=== PATIENT | male | born 1965 | race Caucasian/White ===

== ENCOUNTER 2025-07-29 16:17 | Emergency (ER) | payer OTHER, SELFPAY ==
--- NOTE | ~2025-07-29 | CT_ITS ---
CLINICAL HISTORY: epigastric llq pain CT abdomen and pelvis with contrast Comparison: None provided Findings: No acute findings within visualized lung bases. Liver, spleen, adrenal glands, pancreas, gallbladder, and kidneys are unremarkable. Calcified but nonaneurysmal abdominal aorta. Unremarkable urinary bladder. Mildly enlarged prostate gland. Moderate circumferential gastric wall thickening. Normal caliber small bowel. No obstruction. Few scattered colonic diverticuli without CT evidence of acute diverticulitis. Mildly increased colonic stool burden. Normal appendix. No free fluid or free air. No acute osseous abnormality. Bilateral L5 spondylolysis with trace grade 1 L5 on S1 anterolisthesis. No pathologically enlarged lymph nodes. Impression: 1. No acute findings identified in the abdomen or pelvis. 2. Mild circumferential gastric wall thickening, could be secondary to incomplete distention or possibly a gastritis. If clinically indicated, consider correlation with endoscopy. 3. Mildly enlarged prostate gland. Consider correlation with PSA. 4. Mild constipation. 5. Additional findings as above. This document has been electronically signed by: Jerel Montero MD on 07/29/2025 19:32:41
[2025-07-29 16:39] VITALS: BP 153/80; PULSE 60; RESP 16; TEMP 36.9; O2SAT 98; BMI 27.7
--- NOTE | 2025-07-29 16:43 | ECG_ITS ---
Test Reason : EPIGASTRIC PAIN Blood Pressure : */* mmHG Vent. Rate : 55 BPM Atrial Rate : 55 BPM P-R Int : 134 ms QRS Dur : 96 ms QT Int : 414 ms P-R-T Axes : 40 1 10 degrees QTcB Int : 396 ms Sinus bradycardia Otherwise normal ECG No previous ECGs available Referred By: Sushil Gusman Electronically Signed By: JANNY MARIE MD
--- NOTE | 2025-07-29 16:45 | ED_ITS ---
HPI - General Adult General Chief complaint: Abdominal Pain Stated complaint: abd pain Time Seen by Provider: 07/29/25 17:49 Related Data Allergies Allergy/AdvReac Type Severity Reaction Status Date / Time No Known Allergies Allergy Verified 07/29/25 16:40 [facility] Social History Social History Alcohol intake: current Alcohol intake frequency: 0-2 drinks per day Alcohol type: beer Physical Exam ED Vital Signs: Vital Signs - 24 hr 07/29/25 16:39 07/29/25 17:58 07/29/25 18:13 Temperature 98.4 F 98.3 F 98.8 F Pulse Rate 60 61 65 Respiratory Rate 16 18 18 Blood Pressure 153/80 H 140/78 H 152/78 H Pulse Oximetry 98 94 94 Oxygen Delivery Method Room Air Room Air Room Air 07/29/25 21:00 Temperature 98.8 F Pulse Rate 65 Respiratory Rate 18 Blood Pressure 152/78 H Pulse Oximetry 94 Oxygen Delivery Method Room Air BMI result Body Mass Index 27.7 Course Course Course Narrative: RME: 60-year-old male presents to ED for epigastric abdominal pain with low- grade fever and diarrhea. Patient states gas and low appetite. Patient denies any fever chills or urinary symptoms. Labs ordered Medications Administered Discontinued Medications Generic Name Dose Route Start Last Admin Trade Name Freq PRN Reason Stop Dose Admin Sodium Chloride 1,000 mls @ 999 mls/hr 07/29/25 18:00 07/29/25 21:00 Ns IV 07/29/25 19:00 Infused .Q1H1M JIMMY Infusion Medical Decision Making Lab Data 07/29/25 17:37 07/29/25 17:37 Labs: Lab Results 07/29/25 07/29/25 Range/Units 17:37 18:30 WBC 8.4 (4.8-10.8) X10*3/uL RBC 4.46 L (4.60-5.80) X10*6/uL Hgb 13.2 L (14.0-18.0) g/dl Hct 39.0 L (42.0-52.0) % MCV 87.4 (80.0-98.0) fL MCH 29.6 (27.0-33.0) pg MCHC 33.8 (31.0-36.0) g/dl RDW 13.1 (11.0-16.0) % Plt Count 240 (160-400) X10*3/uL MPV 9.9 (9.4-12.4) fL Immature Gran % (Auto) 2.3 H (0.0-0.4) % Neut % (Auto) 55.5 (45-73) % Lymph % (Auto) 29.0 (20-40) % [place] % (Auto) 11.2 H (2-11) % Eos % (Auto) 1.3 (0-4) % Baso % (Auto) 0.7 (0-2) % Lymph # (Auto) 2.4 (1.2-4.9) X10*3/uL [place] # (Auto) 0.9 (0.1-1.2) X10*3/uL Eos # (Auto) 0.1 (0.0-0.4) X10*3/uL Baso # (Auto) 0.1 (0.0-0.2) X10*3/uL Abs Immat Gran (auto) 0.19 H (0.00-0.03) X10*3/uL Absolute Neuts (auto) 4.7 (2.0-8.3) x10*3/uL Absolute Nucleated RBC 0.000 (0.0-0.012) X10*3/uL Nucleated RBC % (auto) 0.0 (0.0-0.2) /100WBC PT 10.9 (10.9-12.4) SEC INR 1.0 (0.9-1.1) APTT 26.6 L (26.7-34.1) SEC Sodium 143 (135-145) mmol/L Potassium 4.0 (3.3-5.1) mmol/L Chloride 105 (96-108) mmol/L Carbon Dioxide 28 (22-29) mmol/L Anion Gap 14 (12-20) BUN 17 H (9-16) mg/dL Creatinine 0.91 (0.5-1.4) mg/dL Estim Creat Clear Calc 82.6 Estimated GFR > 60 Random Glucose 81 (60-115) mg/dL Calcium 9.3 (8.4-10.2) mg/dL Total Bilirubin 0.5 (0.0-1.0) mg/dL AST 24 (5-37) U/L ALT 20 (0-40) U/L Alkaline Phosphatase 75 (39-117) U/L Troponin I High Sens < 2.7 (<3.5-35.0) ng/L Total Protein 7.0 (6.5-8.0) g/dL Albumin 4.2 (3.5-5.0) g/dL Lipase 27 (8-78) U/L COVID-19 (NOEMI) Negative (Negative) COVID-19 Clin Com See Note Discharge Plan Discharge Clinical Impression: Abdominal pain, Gastritis Patient Disposition: Home, Self-Care Instructions: Gastritis (ED) Referrals: Micah Smith MD [Primary Care Provider, Internal Medicine] - 08/01/25 Interventions: ED Discharge Assessment Last Done: 07/29/25 21:00 Discharge Date/Time: 07/29/25 21:00 Print Language: Hungarian
[2025-07-29 17:41] LABS: MANUAL DIFF FLAG NO
--- OUTSIDE RECORDS SUMMARY | 2025-07-29 17:44 | XMS_ITS | Clinical Summary ---
Author Organization [facility] Address [address] [facility] [address] [place] [address] Phone Care Team Providers Care Automotive General Sales Manager Name Role Phone Micah Smith MD Primary Care Provider [phone] Micah Smith MD Unavailable [phone] Lewis Marquez MD Unavailable [phone] Allergies Active Allergy Reactions Criticality Noted Date Comments Amoxicillin-Pot Clavulanate Diarrhea Low 01/15/20 20 Medications metoprolol tartrate (LOPRESSOR) 25 MG tablet Take 1 tablet by mouth 2 (two) times a day. 06/15/2024 Active aspirin 81 mg chewable tablet Take 81 mg by mouth daily. Active omeprazole (PRILOSEC) 20 MG tablet Take 20 mg by mouth daily. Active tadalafiL (CIALIS) 5 MG tablet Take 5 mg by mouth daily as needed for erectile dysfunction. Active omega-3 acid ethyl esters (LOVAZA) 1 gram capsule Take 2 g by mouth 2 (two) times a day. Active Active Problems Problem Noted Date Diagnosed Date Gastroesophageal reflux disease 02/06/2025 Erectile disorder 02/06/2025 History of allograft aortic valve replacement Calculus of lower urinary tract 06/21/2019 Other hyperlipidemia 09/26/2018 Obstructive sleep apnea syndrome 09/26/2018 Resolved Problems Problem Noted Date Diagnosed Date Resolved Date Aortic stenosis, moderate 01/20/2022 Pain of left shoulder with external rotation 01/28/2022 Trigger finger of left thumb 09/26/2018 11/11/2022 Trigger middle finger of left hand 09/26/2018 11/11/2022 Immunizations Immunization Administration Dates Next Due INFLUENZA, SPLIT VIRUS, TRIVALENT PF 09/03/2017 Influenza Quadrivalent Preservative Free IM 11/0 07/2020 Influenza Recombinant Joey valent Preservative Free IM 09/27/2019,09/26/2018 Td (adult),2 Lf Tetanus Toxoid, PF, Adsorbed Td, unspecified formulation 04/11/2008 Tdap 06/13/2012 Family History Medical History Relation Comments Bladder Cancer Father CV disease Father hx of angioplast y Diabetes mellitus Father Heart disease Sister stent Relation Status Comments Father ureter tumor Mother Alive Sister Alive Social History Tobacco Use Types Packs/Day Years Used Date Smoking Tobacco: Never Smokeless Tobacco: Never Tobacco Cessation:Counseling Given: Not Answered Alcohol Use Standard Drinks/Week Comments Not Currently 0 (1 standard drink = 0.6 oz pur e alcohol) 2 beers a night Child or Family Care Answer Date Record ed Do you have problems with on e of the following making it difficult for you to work, study, or receive health care? No 11/27/2023 Education Answer Date Recorded Are you interested in help w ith more adult education (for example, completing high school, GED, job training, learning the Tongan language, technical skills, or developing parenting skills)? No 11/27/2023 Are you concerned about learning? Not on file 11/27/2023 No 11/27/2023 Yes 11/27/2023 Food Answer Date Recorded Within the past 6 months we worried whether our food would run out before we got money to buy more. Never True 11/27/2023 Within the past 6 months the food we bought just didn't last and we didn't have enough money to get more. Never True Residential Stability Answer Date Recor ded What is your housing situation today? I have nellie sing 11/27/2023 How many times have you move d in the past 12 months? Zero (I did not move) 11/27/2023 Paying for Meds Answer Date Recorded Do you have trouble paying for medicines? No 11/27/2023 Paying Utility Bills Answer Date Record ed Do you have trouble paying your heating or elect ricity bill? No 11/27/2023 Transportation Answer Date Recorded Has the lack of transportati on kept you from medical appointments or from getting medications? No 11/27/2023 Unemployment Answer Date Recorded Are you currently unemployed or working on a part-time or temporary basis, and looking for work? No 11/10/2022 Digital Access Answer Date Recorded No 11/27/2023 Yes 11/27/2023 Do you have reliable internet access at home? Ye s 11/27/2023 Do you have a device (e.g., phone, tablet, computer) with a working camera? Yes 11/27/2023 Intimate Partner Violence Answer Date R ecorded Are you denied basic needs s uch as food, clothing, or medical care? No 04/11/2024 In the past 12 months have y ou been in a relationship with a person who hurts, threatens, or tries to control you? No 04/11/2024 Are you denied basic needs s uch as food, clothing, or medical care? No 04/11/2024 In the past 12 months have y ou been in a relationship with a person who hurts, threatens, or tries to control you? No 04/11/2024 Sex and Gender Information Value Date Recorded Sex Assigned at Male 10/04/2021 5:42 AM EST Legal Sex Male 6:37 PM EST Gender Identity Not on file Sexual Orientation Straight 12/21/2021 7: 42 AM EST Last Filed Vital Signs Vital Sign Reading Time Taken Comments Blood Pressure 108/60 02/06/2025 1:38 PM EDT Pulse 70 02/06/2025 1:38 PM EDT Temperature 36.2 C (97.1 F) 02/06/2025 1:38 PM EDT Respiratory Rate 18 06/15/2019 6:26 PM EDT Oxygen Saturation 96% 02/06/2025 1:38 PM EDT Inhaled Oxygen Concentration - - Weight 79.1 kg (174 lb 6.4 oz) 02/06/2025 1:38 P M EDT Height 166.8 cm (5' 5.67 ) 02/06/2025 1:38 PM ED T Body Mass Index 28.43 02/06/2025 1:38 PM EDT Plan of Treatment Upcoming Encounters Date Type Department Care Team (Late st Contact Info) Description 08/08/2025 4:30 PM EDT Office Visit [facility] [address] [place] [address] Micah Smith MD [address], [address] [place] [address] 03/05/2026 3:45 PM EDT Office Visit [facility] [address] [facility] [address] [place] [address] Sheryl Peñaloza MD [address] [place] [address] [email or web address] Health Maintenance Due Date Last Done Comments COLOGUARD 02/14/2008 FIT TEST 02/14/2008 FOBT 02/14/2008 SIGMOIDOSCOPY 02/14/2008 VIRTUAL COLONOSCOPY 02/14/2008 COLONOSCOPY 09/25/2023 09/25/2013 COLORECTAL CANCER SCREENING 09/25/2023 INFLUENZA VACCINE (#1) 2025 , 09/27/2019, 09/26/2018, Additional history exists COVID-19 VACCINE ( - 2024- season) 2025 04/20/2021, 03/23/2021 DEPRESSION SCREENING 02/06/2026 02/06/2025 PNEUMOCOCCAL VACCINES (50+ years) (1 of 1 - PCV) 02/22/2026 Postponed from 2013 (Patient Declines / Guardian Declines) ZOSTER VACCINES (1 of 2) 02/22/2026 Pos tponed from 2013 (Patient Declines / Guardian Declines) SCREENING FOR DIABETES 02/08/2028 02/07/2025 LIPID PANEL 02/07/2030 02/07/2025, 02/0 11/2023, 10/02/2022, Additional history exists Adult Td,Tdap Booster 11/11/2032 11/11/2022 , 06/13/2012, 04/11/2008 RSV VACCINE (1 - 1-dose 75+ series) 2038 HEPATITIS C SCREENING Completed 09/30/2018, 018 HIV ONE-TIME SCREENING (18-65 YEARS) Completed 10/04/2019 SMOKING STATUS SCREENING (Once After 26 Yrs) Completed 02/06/2025 HEPATITIS A VACCINES Aged Out No long er eligible based on patient's age to complete this topic HIB VACCINES Aged Out No longer eligi ble based on patient's age to complete this topic MENINGOCOCCAL VACCINES (ACWY) Aged Out No longer eligible based on patient's age to complete this topic MENINGOCOCCAL VACCINES (B) Aged Out N o longer eligible based on patient's age to complete this topic Medical Devices Not on file Procedures Procedure Name Priority Date/Time Associated Diagnosis Comments LIPID PANEL Routine 02/07/2025 7:52 AM EDT Other hyperlipidemia HEPATITIS C ANTIBODY, QUALITATIVE Routine 09/30/2018 7:43 AM EST Annual physical exam HM COLONOSCOPY FOR RESULT ENTRY ONLY Routine 09/25/2013 from Last 3 Months or Most Recently Relevant to Health Maintenance Results * (ABNORMAL) Lipid panel (02/07/2025 7:52 AM EDT) HDL 41 mg/dL [facility] Comment: Interpretation <40 mg/dL: Low HDL cholesterol (major risk factor for CHD) Greater than or equal to 60 mg/dL: High HDL cholesterol ( negative risk factor for CHD) HDL - cholesterol is affected by a number of factors, e.g. smoking, excerise, hormones, sex and age. CHOLESTEROL 237 0 - 240 mg/dL [facility] TRIGLYCERIDES 139 30 - 160 mg/dL [facility] LDL 168(H) 50 - 129 mg/dL [facility] Comment: LDL levels in terms of risk for coronary heart disease: <100 mg/dL: Optimal 100-129 mg/dL: Near or above optimal 130-159 mg/dL: Borderline high 160-189 mg/dL: High >190 mg/dL: Very High CARDIAC RISK RATIO 5.8(H) 3.4 - 5.0 [facility] Blood 02/07/2025 7:52 AM EDT 02/07/2025 7:55 AM EDT Micah Smith MD LAB BLOOD ORDERABLES Final Result [address] [address] * Hepatitis C antibody, qualitative (09/30/2018 7:43 AM EST) HCV Negative Negative [facility] Comment: This is a screening test and should be confirmed with molecular testing Blood 09/30/2018 7:43 AM EST 09/30/2018 7:49 AM EST Micah Smith MD LAB BLOOD ORDERABLES Final Result Performing Organization Address [facility] Co de Phone Number [address] [address] * COLONOSCOPY FOR RESULT ENTRY ONLY (09/25/2013) Pathologist [facility] Colonoscopy repeat in 10 years Historical Provider HEALTH MAINTENANCE Final Result from Last 3 Months or Most Recently Relevant to Health [place] [id number] [facility] [employer] [address] , [facility] [place] [id number] [facility] [employer] [address] [id number] [facility] [address] [id number] [facility] [address] [place] [address] [facility] [employer] [address] [facility] [employer] [address] , [address] Care Teams Automotive General Sales Manager Relationship Specialty Start Date End Date Micah Smith MD [address] [place] [address], [address] [place] [address] [email or web address] PCP - General 12/15/13 Micah Smith MD [address] [place] [address], [address] [place] [address] [email or web address] Historical LMR Provider 09/12/17 Lewis Marquez MD [address] [place] [address], [address] [place] [address] Cardiology 09/26/18 Additional Source Comments The information contained in this document represents components of the legal health record. It is not the complete legal health record.[facility]
--- OUTSIDE RECORDS SUMMARY | 2025-07-29 17:44 | XMS_ITS | Encounter Summary ---
Author Organization [facility] Address [facility] [employer] [facility] [address] [place] [address] Phone Care Team Providers Care Stone Setter Apprentice Name Role Phone Micah Smith MD Primary Care Provider + [phone] Micah Smith MD Unavailable [phone] Trevin Galan NP Unavailable Galileo Last MD Unavailable Maicol Matthews MD Unavailable [phone] Lewis Marquez MD Unavailable [phone] Micah Smith MD Unavailable [phone] Encounter Details Date Type Department Care Team (Latest Contact Info) Description 02/09/2018 Transcribe Orders [facility] [address] [place] [address] Lewis Marquez MD [address] [place] [address] Hyperlipidemia, unspecified hyperlipidemia type (Primary Dx) Social History Tobacco Use Types Packs/Day Years Used Date Smoking Tobacco: Never Assessed Sex and Gender Information Value Date Recorded Sex Assigned at Male 10/04/2021 5:42 AM EST Legal Sex Male 6:37 PM EST Gender Identity Not on file Sexual Orientation Straight 12/21/2021 7: 42 AM EST documented as of this encounter Plan of Treatment Upcoming Encounters Date Type Department Care Team (Late st Contact Info) Description 08/08/2025 4:30 PM EDT Office Visit [facility] [address] [place] [address] Micah Smith MD [address] [facility], [address] [place] [address] 03/05/2026 3:45 PM EDT Office Visit [facility] [address] [facility] 1st [place] [address] Sheryl Peñaloza MD [address] [place] [address] [email or web address] documented as of this encounter Results * (ABNORMAL) Lipid panel (02/09/2018 7:40 AM EDT) HDL 45 mg/dL [facility] Comment: Interpretation: Risk Level Males Decreased >45 mg/dL Average 40-45 mg/dL Increased <40 mg/dL CHOLESTEROL 239 0 - 240 mg/dL [facility] TRIGLYCERIDES 196(H) 30 - 160 mg/dL [facility] LDL 155(H) 50 - 129 mg/dL [facility] Comment: LDL levels in terms of risk for coronary heart disease: <100 mg/dL: Optimal 100-129 mg/dL: Near or above optimal 130-159 mg/dL: Borderline high 160-189 mg/dL: High >190 mg/dL: Very High CARDIAC RISK RATIO 5.3(H) 3.4 - 5.0 [facility] Blood 02/09/2018 7:40 AM EDT 02/09/2018 7:47 AM EDT us Lewis Marquez MD LAB BLOOD ORDERABLES Final Result [facility] [address] [place] [address] documented in this encounter Visit Diagnoses Diagnosis Hyperlipidemia, unspecified hyperlipidemia type- Primary documented in this encounter Additional Health Concerns Infection Onset Date Last Indicated Resolved Time CoV-Risk 12/14/2020 12/15/2020 12/24/2020 1:25 AM EST documented as of this encounter Care Teams Stone Setter Apprentice Relationship Specialty Start Date End Date Micah Smith MD [address] [place] [address], [address] [place] [address] [email or web address] PCP - General 12/15/13 Micah Smith MD [address] [place] [address], [address] [place] [address] Historical LMR Provider 09/12/17 Trevin Galan NP [address] [place] [address] [address] [address] [email or web address] Historical LMR Provider 09/12/17 11/29/21 Galileo Last MD [address] [place] [address], [address] [address] [email or web address] Historical LMR Provider 09/12/17 11/29/21 Maicol Matthews MD [address] [place] [address] [address] [email or web address] Historical LMR Provider 09/12/17 11/29/21 Lewis Marquez MD [address] [facility] [address] [place] [address] Cardiology 09/26/18 Micah Smith MD [address] [place] [address], [address] [place] [address] [email or web address] Insurance Assigned Provider 02/25/1904/26/20 documented as of this encounter Additional Source Comments The information contained in this document represents components of the legal health record. It is not the complete legal health record.[facility]
--- OUTSIDE RECORDS SUMMARY | 2025-07-29 17:44 | XMS_ITS | Encounter Summary ---
Author Organization [facility] Address [facility] [employer] [facility] [address] [place] [address] Phone Care Team Providers Care Marketing Support Coordinator Name Role Phone Micah Smith MD Primary Care Provider + [phone] Micah Smith MD Unavailable [phone] Trevin Galan NP Unavailable Galileo Last MD Unavailable Maicol Matthews MD Unavailable [phone] Lewis Marquez MD Unavailable [phone] Micah Smith MD Unavailable [phone] Encounter Details Date Type Department Care Team (Late st Contact Info) Description 09/22/2018 Transcribe Orders [facility] [address] [place] [address] Lewis Marquez MD [address] [place] [address] Social History Tobacco Use Types Packs/Day Years [...] Description 08/08/2025 4:30 PM EDT [facility] [address] [place] [address] Micah Smith MD [address] [facility] [place] [address] 03/05/2026 3:45 PM EDT Office Visit [facility] [address] [facility] 1st [place] [address] Sheryl Peñaloza MD [address] [place] [address] [email or web address] documented as of this encounter Visit Diagnoses Not on filedocumented in this encounter Additional Health Concerns Infection Onset Date Last Indicated Resolved Time CoV-Risk 12/14/2020 12/15/2020 12/24/2020 1:25 AM EST documented as of this encounter Care Teams Marketing Support Coordinator Relationship Specialty Start Date End Date Micah Smith MD [address] [place] [address], [address] [place] [address] PCP - General 12/15/13 Micah Smith MD [address] [place] [address], [address] [place] [address] Historical LMR Provider 09/12/17 Trevin Galan NP [address] [place] [address] 2[place] [address] [email or web address] Historical LMR Provider 09/12/17 11/29/21 Galileo Last MD [address] [place] [address], [address] [place] [address] [email or web address] Historical LMR Provider 09/12/17 11/29/21 Maicol Matthews MD [address] [facility] [address] [place] [address] [email or web address] Historical LMR Provider 09/12/17 11/29/21 Lewis Marquez MD [address] [place] [address] Dr [facility] [address] [place] [address] Cardiology 09/26/18 Micah Smith MD [address] [place] [address], [address] [place] [address] [email or web address] Insurance Assigned Provider 02/25/1904/26/20 documented as of this encounter Additional Source Comments The information contained in this document represents components of the legal health record. It is not the complete legal health record.[facility]
--- OUTSIDE RECORDS SUMMARY | 2025-07-29 17:44 | XMS_ITS | Encounter Summary ---
Author Organization [facility] Address [address] [facility] [address] [place] [address] Phone Care Team Providers Care Alterations Manager Name Role Phone Micah Smith MD Primary Care Provider + [phone] Micah Smith MD Unavailable [phone] Trevin Galan NP Unavailable Galileo Last MD Unavailable Maicol Matthews MD Unavailable [phone] Lewis Marquez MD Unavailable [phone] Encounter Details Date Type Department Care Team (Late st Contact Info) Description 10/06/2021 Procedure Pass [facility] [address] [place] [address] Social History Tobacco Use Types Packs/Day Years Used Date Smoking Tobacco: Never Smokeless Tobacco: Never Alcohol Use Standard Drinks/Week Comments Yes 6 (1 standard drink = 0.6 oz pur e alcohol) Child or Family Care Answer Date Record ed Do you have problems with on e of the following making it difficult for you to work, study, or receive health care? No 10/04/2021 Education Answer Date Recorded Are you interested in help w ith more adult education (for example, completing high school, GED, job training, learning the Vietnamese language, technical skills, or developing parenting skills)? No 10/04/2021 Are you concerned about learning? Not on file 10/04/2021 Not on file 10/04/2021 Not on file 10/04/2021 Food Answer Date Recorded Within the past 6 months we worried whether our food would run out before we got money to buy more. Never True 10/04/2021 Within the past 6 months the food we bought just didn't last and we didn't have enough money to get more. Never True Paying for Meds Answer Date Recorded Do you have trouble paying for medicines? No 10/04/2021 Paying Utility Bills Answer Date Record ed Do you have trouble paying your heating or elect ricity bill? No 10/04/2021 Transportation Answer Date Recorded Has the lack of transportati on kept you from medical appointments or from getting medications? No 10/04/2021 Sex and Gender Information Value Date Recorded Sex Assigned at Male 10/04/2021 5:42 AM EST Legal Sex Male 6:37 PM EST Gender Identity Not on file Sexual Orientation Straight 12/21/2021 7: 42 AM EST documented as of this encounter Plan of Treatment Upcoming Encounters Date Type Department Care Team (Late st Contact Info) Description 08/08/2025 4:30 PM EDT Office Visit [address] [address] Micah Smith MD [address] [place] [address], [address] [place] [address] 03/05/2026 3:45 PM EDT Office Visit [facility] [address] [address] Sheryl Peñaloza MD [address] [place] [address] [email or web address] documented as of this encounter Visit Diagnoses Not on filedocumented in this encounter Additional Health Concerns Assessment Noted Time PHQ-2 Depression Total Score: 0 10/04/20 21 5:48 AM EST documented as of this encounter Care Teams Alterations Manager Relationship Specialty Start Date End Date Micah Smith MD [address] [place] [address], [address] [place] [address] PCP - General 12/15/13 Micah Smith MD [address] [facility], [address] [place] [address] [email or web address] Historical LMR Provider 09/12/17 Trevin Galan NP [address] [place] [address] 2[address] [address] [email or web address] Historical LMR Provider 09/12/17 11/29/21 Galileo Last MD [address] [place] [address], [address] [address] [email or web address] Historical LMR Provider 09/12/17 11/29/21 Maicol Matthews MD [address] [place] [address] [email or web address] Historical LMR Provider 09/12/17 11/29/21 Lewis Marquez MD [address] [place] [address] Cardiology 09/26/18 documented as of this encounter Additional Source Comments The information contained in this document represents components of the legal health record. It is not the complete legal health record.[facility]
--- OUTSIDE RECORDS SUMMARY | 2025-07-29 17:44 | XMS_ITS | Encounter Summary ---
Author Organization [facility] Address [address] [facility] [address] [place] [address] Phone Care Team Providers Care Overcoil Stepper Name Role Phone Micah Smith MD Primary Care Provider [phone] Micah Smith MD Unavailable [phone] Lewis Marquez MD Unavailable [phone] Encounter Details Date Type Department Care Team (Late st Contact Info) Description 04/12/2024 Procedure Pass [facility] Endoscopy Admitting Dept Virtual Department [address] [place], [place] [id number] Social History Tobacco Use Types Packs/Day Years Used Date Smoking Tobacco: Never Smokeless Tobacco: Never Alcohol Use Standard Drinks/Week Comments Not Currently [...] high school, GED, job training, learning the Israeli language, technical skills, or developing parenting skills)? [...] your housing situation today? I have nellie palmer 11/27/2023 How many times have you move [...] Description 08/08/2025 4:30 PM EDT Office Visit [facility] [address] [place] [address] [place] [address] Micah Smith MD [address] [facility], [address] [place] [address] 03/05/2026 3:45 PM EDT Office Visit [facility] [address] [facility] [address] [place] [address] Sheryl Peñaloza MD [address] [place] [address] [email or web address] documented as of this encounter Visit Diagnoses Not on filedocumented in this encounter Additional Health Concerns Assessment Noted Time PHQ-2 Depression Total Score: 0 11/27/19 24 4:28 AM EST documented as of this encounter Care Teams Overcoil Stepper Relationship Specialty Start Date End Date Micah Smith MD [address] [place] [address], [address] [place] [address] PCP - General 12/15/13 Micah Smith MD [address] [place] [address], [address] [place] [address] Historical LMR Provider 09/12/17 Lewis Marquez MD [address] [place] [address], [address] [place] [address] Cardiology 09/26/18 documented as of this encounter Additional Source Comments The information contained in this document represents components of the legal health record. It is not the complete legal health record.[facility]
[2025-07-29 17:48] LABS: Hematocrit 39.0 % (42.0-52.0); Hemoglobin 13.2 g/dl (14.0-18.0); Imm Gran Abs Auto 0.19 X10*3/uL (0.00-0.03); Imm Gran Pct Auto 2.3 % (0.0-0.4); Lymphocytes Absolute Auto 2.4 X10*3/uL (1.2-4.9); Mean Corpuscular HGB Conc 33.8 g/dl (31.0-36.0); Mean Corpuscular Hemoglobin 29.6 pg (27.0-33.0); Mean Corpuscular Volume 87.4 fL (80.0-98.0); NRBC Abs Auto 0.000 X10*3/uL (0.0-0.012); NRBC Pct Auto 0.0 /100WBC (0.0-0.2); Platelet Count 240 X10*3/uL (160-400); Red Blood Count 4.46 X10*6/uL (4.60-5.80); White Blood Count 8.4 X10*3/uL (4.8-10.8)
[2025-07-29 17:55] LABS: Alanine Aminotransferase 20 U/L (0-40); Albumin Level 4.2 g/dL (3.5-5.0); Alkaline Phosphatase 75 U/L (39-117); Anion Gap 14 (12-20); Aspartate Amino Transferase 24 U/L (5-37); Blood Urea Nitrogen 17 mg/dL (9-16); Calcium 9.3 mg/dL (8.4-10.2); Carbon Dioxide 28 mmol/L (22-29); Chloride 105 mmol/L (96-108); Creatinine Clr Calc Pharmacy 82.6; Estimated Glomerular Filt Rate > 60; Lipase 27 U/L (8-78); Potassium 4.0 mmol/L (3.3-5.1); Sodium 143 mmol/L (135-145); Total Protein 7.0 g/dL (6.5-8.0)
[2025-07-29 17:57] LABS: INTERNATIONAL NORM RATIO 1.0 (0.9-1.1); Prothrombin Time 10.9 SEC (10.9-12.4)
--- NOTE | 2025-07-29 17:57 | ED.ABDPAIN ---
HPI - Abdominal Pain General Chief Complaint: Abdominal Pain Stated Complaint: abd pain Time Seen by Provider: 07/29/25 17:49 History of Present Illness HPI narrative: 60-year-old male presents today with having abdominal pain. The pain is over the epigastric area. Positive low-grade fever earlier in the week. Positive loose stool that was brown in color early in the week. Now having abdominal pain in the epigastric area and in the left lower quadrant not associated with any change in diet. No fever no chills since early in the week. No abdominal surgery done in the past no chest pain or shortness of breath no diaphoresis. Patient is from home. Related Data Allergies Allergy/AdvReac Type Severity Reaction Status Date / Time No Known Allergies Allergy Verified 07/29/25 16:40 Review of Systems Review of Systems Positive abdominal pain PMFSH Past Medical History Attestation statement: The following information was validated with the patient. Social History Social History Alcohol intake: current Alcohol intake frequency: 0-2 drinks per day Alcohol type: beer Smoked in Last 30 Days: No Use of substances other than those prescribed or required for medical reasons: No Advance Directives: No Advance Directives Information Provided: No Physical Exam ED Exam Exam: Appearance: Alert. Oriented X3. No acute distress. Eyes: Pupils equal, round and reactive to light. ENT: Pharynx normal. Neck: Normal inspection. Neck supple. No lymph nodes noted. No crepitus CVS: Normal heart rate and rhythm. Pulses normal. Normal S1 and S2 Respiratory: No respiratory distress. Breath sounds normal. No Wheezing. No rales Abdomen: Soft and nontender. No rigidity. No distention. good BS x4 Skin: Skin warm and dry. Normal skin color. Normal skin turgor. Extremities: No lower extremity edema. Neurovascular intact to all extremities. No Lacerations. No Rash Neuro: Oriented X 3. No motor deficit. No sensory deficit. Moving all extermities. No slurred speech Vital Signs: Vital Signs - 24 hr 07/29/25 16:39 07/29/25 17:58 07/29/25 18:13 Temperature 98.4 F 98.3 F 98.8 F Pulse Rate 60 61 65 Respiratory Rate 16 18 18 Blood Pressure 153/80 H 140/78 H 152/78 H Pulse Oximetry 98 94 94 Oxygen Delivery Method Room Air Room Air Room Air BMI result Body Mass Index 27.7 Medical Decision Making Medical Decision Making [facility] Narrative: Patient is 60 years old patient presented today with having abdominal pain. Mostly over the epigastric area. Has question low-grade fever has some diarrhea early in the week. Now the pain has gone to the left side. Patient is white count is normal. INR is normal. Patient is LFTs are normal. Patient's lipase is 27 there is no evidence for pancreatitis. One set of troponin were done and were negative. COVID test was negative. Patient's CT abdomen pelvis by my interpretation showed no gross obstruction. Radiology's interpretation showed no kidney stone no diverticulitis no obstruction no abscess question gastritis. Will have patient increase dose of omeprazole. Follow-up on an outpatient basis. In stable condition. Differential Diagnosis Differential Diagnoses: The differential diagnosis associated with the presentation includes Gastritis, obstruction, diverticulitis, pancreatitis Admission/Observation Consideration of admission/observation: Escalation of care including admission/observation considered Lab Data [facility] Lab Attestation statement: I reviewed the patient's lab results. 07/29/25 17:37 07/29/25 17:37 Labs: Lab Results 07/29/25 07/29/25 Range/Units 17:37 18:30 WBC 8.4 (4.8-10.8) X10*3/uL RBC 4.46 L (4.60-5.80) X10*6/uL Hgb 13.2 L (14.0-18.0) g/dl Hct 39.0 L (42.0-52.0) % MCV 87.4 (80.0-98.0) fL MCH 29.6 (27.0-33.0) pg MCHC 33.8 (31.0-36.0) g/dl RDW 13.1 (11.0-16.0) % Plt Count 240 (160-400) X10*3/uL MPV 9.9 (9.4-12.4) fL Immature Gran % (Auto) 2.3 H (0.0-0.4) % Neut % (Auto) 55.5 (45-73) % Lymph % (Auto) 29.0 (20-40) % Reagan % (Auto) 11.2 H (2-11) % Eos % (Auto) 1.3 (0-4) % Baso % (Auto) 0.7 (0-2) % Lymph # (Auto) 2.4 (1.2-4.9) X10*3/uL Reagan # (Auto) 0.9 (0.1-1.2) X10*3/uL Eos # (Auto) 0.1 (0.0-0.4) X10*3/uL Baso # (Auto) 0.1 (0.0-0.2) X10*3/uL Abs Immat Gran (auto) 0.19 H (0.00-0.03) X10*3/uL Absolute Neuts (auto) 4.7 (2.0-8.3) x10*3/uL Absolute Nucleated RBC 0.000 (0.0-0.012) X10*3/uL Nucleated RBC % (auto) 0.0 (0.0-0.2) /100WBC PT 10.9 (10.9-12.4) SEC INR 1.0 (0.9-1.1) APTT 26.6 L (26.7-34.1) SEC Sodium 143 (135-145) mmol/L Potassium 4.0 (3.3-5.1) mmol/L Chloride 105 (96-108) mmol/L Carbon Dioxide 28 (22-29) mmol/L Anion Gap 14 (12-20) BUN 17 H (9-16) mg/dL Creatinine 0.91 (0.5-1.4) mg/dL Estim Creat Clear Calc 82.6 Estimated GFR > 60 Random Glucose 81 (60-115) mg/dL Calcium 9.3 (8.4-10.2) mg/dL Total Bilirubin 0.5 (0.0-1.0) mg/dL AST 24 (5-37) U/L ALT 20 (0-40) U/L Alkaline Phosphatase 75 (39-117) U/L Troponin I High Sens < 2.7 (<3.5-35.0) ng/L Total Protein 7.0 (6.5-8.0) g/dL Albumin 4.2 (3.5-5.0) g/dL Lipase 27 (8-78) U/L COVID-19 (NOEMI) Negative (Negative) COVID-19 Clin Com See Note Independent Interpretation I performed an independent interpretation of an: EKG (Sinus heart rate is 55 HI QRS QTC within normal limits is no acute ST segment elevation) Radiology Impression Discussion of test interpretation with radiology: I have reviewed the radiologist's reading. Medications Administered Discontinued Medications Generic Name Dose Route Start Last Admin Trade Name Freq PRN Reason Stop Dose Admin Sodium Chloride 1,000 mls @ 999 mls/hr 07/29/25 18:00 07/29/25 18:26 Ns IV 07/29/25 19:00 999 mls/hr .Q1H1M [facility] Administration Discharge Plan Discharge Clinical Impression: Abdominal pain, Gastritis Patient Disposition: Home, Self-Care Instructions: Gastritis (ED) Referrals: Micah Smith MD [Primary Care Provider, Internal Medicine] - 08/01/25 Print Language: Uzbek
[2025-07-29 17:58] VITALS: BP 140/78; PULSE 61; RESP 18; TEMP 36.8; O2SAT 94
[2025-07-29 18:00] LABS: Partial Thromboplastin Time 26.6 SEC (26.7-34.1)
[2025-07-29 18:04] LABS: Troponin-I High Sensitivity < 2.7 ng/L (<3.5-35.0)
[2025-07-29 18:13] VITALS: BP 152/78; PULSE 65; RESP 18; TEMP 37.1; O2SAT 94
--- NOTE | 2025-07-29 18:17 | PC.NURSE ---
60 M presents to ED with Abdominal pain in upper abdomen ongoing for 1 week, no pain at the moment, fever on wednesday and diarrhea 2 days ago. A+Ox4, calm, cooperative. RR even and unlabored, denies CP and SOB.
[2025-07-29 18:49] LABS: COVID-19 Test Negative (Negative); IDNOW Serial# 58CA691E
[2025-07-29 21:00] VITALS: BP 152/78; PULSE 65; RESP 18; TEMP 37.1; O2SAT 94
== END 2025-07-29 21:00 | disposition home or self-care (01) ==
PROVIDERS: Physician Assistant; Emergency Provider Emergency Medicine Emergency Medical Services; PCP Family Medicine
DX: R10.13 Epigastric pain (principal); K29.70 Gastritis, unspecified, without bleeding
CPT/HCPCS: 36415; 74177; 80053; 83690; 84484; 85025; 85610; 85730; 87635; 93005; 96360; 96361; 99285

== ENCOUNTER → 2025-07-29 16:43 | Outpatient (BNV) | payer OTHER, SELFPAY | PROVIDERS: Emergency Provider Emergency Medicine Emergency Medical Services; PCP Family Medicine; Visit Provider Internal Medicine Cardiovascular Disease | DX: R00.1 Bradycardia, unspecified (principal) | CPT/HCPCS: 93010 ==

== ENCOUNTER → 2025-07-29 17:54 | Outpatient (BNV) | payer OTHER, SELFPAY | PROVIDERS: Emergency Provider Emergency Medicine Emergency Medical Services; PCP Family Medicine; Visit Provider Radiology Diagnostic Radiology | DX: R10.13 Epigastric pain (principal); R10.32 Left lower quadrant pain | CPT/HCPCS: 74177 ==